=== PATIENT | female | born 1980 | race Caucasian/White ===

== ENCOUNTER 2021-01-14 14:49 | Emergency (ER) | payer OTHER ==
[2021-01-14 15:03] VITALS: BP 127/99; PULSE 97; TEMP 98.7; BMI 27.4
== END 2021-01-14 15:51 | disposition home or self-care (01) ==
LOC: JER 14:49
DX: R51.9 Headache, unspecified (principal)
CPT/HCPCS: 99283-25; C9803; U0003; U0005